=== PATIENT | male | born 1985 | race Caucasian/White ===

== ENCOUNTER 2018-09-28 00:41 | Emergency (ER) | payer OTHER ==
[~2018-09-28] VITALS: Ht 162.6 cm; Wt 72.6 kg
[2018-09-28 00:54] VITALS: Ht 162.6 cm; Wt 72.6 kg
[2018-09-28 03:42] VITALS: BP 96/46
== END 2018-09-28 03:42 | disposition home or self-care (01) ==
LOC: ED 00:41
DX: S02.2XXA Fracture of nasal bones, initial encounter for closed fracture (principal); F10.129 Alcohol abuse with intoxication, unspecified; I10 Essential (primary) hypertension; Y04.2XXA Assault by strike against or bumped into by another person, initial encounter; Y93.89 Activity, other specified; Y92.89 Other specified places as the place of occurrence of the external cause; Y99.8 Other external cause status
CPT/HCPCS: G0480